=== PATIENT | female | born 1970 | race Caucasian/White ===

== ENCOUNTER 2019-07-29 10:40 | Emergency (ER) | payer OTHER ==
[~2019-07-29] VITALS: Ht 167.6 cm; Wt 72.6 kg
[2019-07-29] MEDS ORDERED: FLOMAX0.4 MG PO (12:34)
[2019-07-29] MEDS ORDERED: NORCO 5-325 TA1 EACH PO (12:34)
== END 2019-07-29 12:52 | disposition home or self-care (01) ==
LOC: ED 10:40
DX: N13.2 Hydronephrosis with renal and ureteral calculous obstruction (principal); Z88.0 Allergy status to penicillin
CPT/HCPCS: 51701; 74176; 80053; 81001; 83690; 84703; 85025; 99284-25; J1170; J1885; J2405; J7030